=== PATIENT | male | born 1995 | race Caucasian/White ===

== ENCOUNTER 2021-08-21 11:12 | Emergency (ER) | payer SELFPAY ==
--- NOTE | 2021-08-21 12:47 | RAD REPORT ---
EXAM DESCRIPTION: RAD - Foot Right 2 View - 08/21/2021 12:00 pm CLINICAL HISTORY: PAINfollowing jumping COMPARISON: No comparisons FINDINGS: No fracture, dislocation or periosteal reaction. No acute bone or joint finding identifiab le. No air or foreign body in the soft tissues. IMPRESSION: Negative right foot examination.
--- NOTE | 2021-08-21 12:47 | RAD REPORT ---
EXAM DESCRIPTION: RAD - Foot Left 2 View - 08/21/2021 12:00 pm CLINICAL HISTORY: PAINfollowing jumping. COMPARISON: None. FINDINGS: Two view left foot examination shows no fracture. No dislocation or periosteal reaction. N o acute bone or joint finding identifiable. No air or foreign body in the soft tissues. IMPRESSION: No fracture or acute finding identifiable.
--- NOTE | 2021-08-21 13:19 | EDPHYS ---
Physician Documentation [facility] Name: Marcelo Garcia Age: 26 yrs Sex: Male : 1995 Arrival Date: 08/21/2021 Time: 11:15 Bed 10 Private MD: ED Physician Jimbo Lilly HPI: 08/21 13:15 This 26 yrs old Male presents to ER via Wheelchair with complaints of Foot Injury - jr8 Both feet after fall. 13:15 Onset: The symptoms/episode began/occurred acutely, yesterday. Modifying factors: The jr8 symptoms are alleviated by nothing. the symptoms are aggravated by weight bearing. Associated signs and symptoms: The patient has no apparent associated signs or symptoms. Severity of symptoms: At their worst the symptoms were mild, in the emergency department the symptoms are unchanged. The patient has not experienced similar symptoms in the past. This is a 26-year-old male patient that presented to the emergency room with complaints of bilateral calcaneal pain after jumping over object and landing on his feet. Patient stated that since then he has had difficulty walking and pain to both of his lower extremities.. Historical: - Allergies: 11:21 No Known Allergies; ll1 - PMHx: 11:21 None; ll1 - PSHx: 11:21 L arm SX; ll1 - Immunization history:: Client reports having NOT received the Covid vaccine. - Social history:: Smoking status: Patient reports the use of cigarette tobacco products, smokes one-half pack cigarettes per day. ROS: 13:15 Constitutional: Negative for fever, chills, and weight loss, Cardiovascular: Negative jr8 for chest pain, palpitations, and edema, Respiratory: Negative for shortness of breath, cough, wheezing, and pleuritic chest pain, Abdomen/GI: Negative for abdominal pain, nausea, vomiting, diarrhea, and constipation, Back: Negative for injury and pain, Skin: Negative for injury, rash, and discoloration, Neuro: Negative for headache, weakness, numbness, tingling, and seizure. 13:15 MS/extremity: Positive for pain, tenderness, of the right foot and left foot. Exam: 13:15 Constitutional: This is a well developed, well nourished patient who is awake, alert, jr8 and in no acute distress. Cardiovascular: Regular rate and rhythm with a normal S1 and S2. No gallops, murmurs, or rubs. Normal PMI, no JVD. No pulse deficits. Respiratory: Lungs have equal breath sounds bilaterally, clear to auscultation and percussion. No rales, rhonchi or wheezes noted. No increased work of breathing, no retractions or nasal flaring. Skin: Warm, dry with normal turgor. Normal color with no rashes, no lesions, and no evidence of cellulitis. Neuro: Awake and alert, GCS 15, oriented to person, place, time, and situation. Motor strength 5/5 in all extremities. Sensory grossly intact. 13:15 Musculoskeletal/extremity: Extremities: grossly normal except: noted in the left foot: pain, tenderness, To the calcaneus and midfoot, noted in the right foot: pain, tenderness, The calcaneus and midfoot, ROM: intact in all extremities, Circulation is intact in all extremities. Sensation intact. Vital Signs: 11:20 BP 108 / 82; Pulse 86; Resp 17; Temp 99.0; Pulse Ox 100% ; Weight 68.04 kg; Height 5 ll1 ft. 11 in. (180.34 cm); Pain 10/10; 11:20 Body Mass Index 20.92 (68.04 kg, 180.34 cm) ll1 MDM: 12:49 Patient medically screened. jr8 13:15 Data reviewed: vital signs, nurses notes, radiologic studies, plain films. Data jr8 interpreted: Pulse oximetry: on room air is 100 %. Interpretation: normal. Counseling: I had a detailed discussion with the patient and/or guardian regarding: the historical points, exam findings, and any diagnostic results supporting the discharge/admit diagnosis, radiology results, the need for outpatient follow up, a family practitioner, to return to the emergency department if symptoms worsen or persist or if there are any questions or concerns that arise at home. ED course: Discussed with patient that there is no acute fracture of either foot. Most likely bruised his feet when jumping over his object and landing directly on his feet. Recommended [id number] NSAIDs and rest for the next few days. If worse come back otherwise to follow-up with primary care.. 08/21 11:29 Order name: XRAY Foot LEFT 2 View; Complete Time: 12:49 jr8 08/21 11:29 Order name: XRAY Foot RIGHT 2 View; Complete Time: 12:56 jr8 Administered Medications: No medications were administered Disposition Summary: 08/21/21 13:19 Discharge Ordered Location: Home jr8 Problem: new jr8 Symptoms: have improved jr8 Condition: Stable jr8 Diagnosis - Pain in left foot jr8 - Pain in right foot jr8 Followup: jr8 - With: Private Physician - When: 5 - 6 days - Reason: Recheck today's complaints, Continuance of care, Re-evaluation by your physician Discharge Instructions: - Discharge Summary Sheet jr8 - Foot Contusion jr8 - Foot Pain jr8 Forms: - Medication Reconciliation Form jr8 - Thank You Letter jr8 - Antibiotic Education jr8 - Prescription Opioid Use jr8 Signatures: Dispatcher [employer] Mathieu Bacon PA PA jr8 Jose D Sheehan, RN RN ll1
--- NOTE | 2021-08-21 13:19 | ER ---
Nurse's Notes [facility] Name: Marcelo Garcia Age: 26 yrs Sex: Male : 1995 Arrival Date: 08/21/2021 Time: 11:15 Bed 10 Private MD: Diagnosis: Pain in left foot;Pain in right foot Presentation: 08/21 11:20 Chief complaint: Patient states: Jumped off railing playing with his kids yesterday. ll1 Bilateral foot pains since (worse on L). Unable to tolerate bearing weight. Coronavirus screen: Vaccine status: Patient reports being unvaccinated. Client denies travel out of the [place] in the last 14 days. At this time, the client does not indicate any symptoms associated with coronavirus-19. Ebola Screen: Patient denies travel to an Ebola-affected area in the 21 days before illness onset. Initial Sepsis Screen: Does the patient meet any 2 criteria? No. Patient's initial sepsis screen is negative. Does the patient have a suspected source of infection? Yes: Bone or joint infection. Risk Assessment: Do you want to hurt yourself or someone else? Patient reports no desire to harm self or others. Onset of symptoms was August 20, 2021. 11:20 Method Of Arrival: Wheelchair ll1 11:20 Acuity: DA 4 ll1 Triage Assessment: 11:22 General: Appears uncomfortable, Behavior is cooperative, appropriate for age. Pain: ll1 Complains of pain in B feet. Musculoskeletal: Reports pain in right foot and left foot. Injury Description: Bruise. Historical: - Allergies: 11:21 No Known Allergies; ll1 - PMHx: 11:21 None; ll1 - PSHx: 11:21 L arm SX; ll1 - Immunization history:: Client reports having NOT received the Covid vaccine. - Social history:: Smoking status: Patient reports the use of cigarette tobacco products, smokes one-half pack cigarettes per day. Assessment: 13:54 Reassessment: Patient is alert, oriented x 3, equal unlabored respirations, skin aa5 warm/dry/pink. Vital Signs: 11:20 BP 108 / 82; Pulse 86; Resp 17; Temp 99.0; Pulse Ox 100% ; Weight 68.04 kg; Height 5 ll1 ft. 11 in. (180.34 cm); Pain 10/10; 11:20 Body Mass Index 20.92 (68.04 kg, 180.34 cm) ll1 ED Course: 11:15 Patient arrived in ED. kz 11:21 Triage completed. ll1 11:22 Arm band placed on. ll1 11:29 Mathieu Sotelo PA is PHCP. jr8 11:29 Jimbo Lilly MD is Attending Physician. jr8 12:00 XRAY Foot LEFT 2 View In Process Unspecified. EDMS 12:00 XRAY Foot RIGHT 2 View In Process Unspecified. EDMS 13:54 No provider procedures requiring assistance completed. Patient did not have IV access aa5 during this emergency room visit. Administered Medications: No medications were administered Outcome: 13:19 Discharge ordered by . jr8 13:54 Discharged to home ambulatory, with crutches. aa5 13:54 Condition: stable 13:54 Discharge instructions given to patient, Instructed on discharge instructions, follow up and referral plans. crutch walking, Demonstrated understanding of instructions, follow-up care, crutch walking. 13:56 Patient left the ED. aa5 Signatures: Dispatcher [employer] EDMS Cassie Campos RN RN aa5 Mathieu Sotelo PA PA jr8 Jose D Sheehan RN RN ll1 Martha Agustin
[2021-08-21 14:26] VITALS: BP 108/82; TEMP 99; O2SAT 100
== END 2021-08-21 13:56 | disposition home or self-care (01) ==
LOC: ER 11:12
DX: M79.672 Pain in left foot (principal); M79.671 Pain in right foot; F17.210 Nicotine dependence, cigarettes, uncomplicated
CPT/HCPCS: 99283

== ENCOUNTER → 2023-06-22 | Emergency (ER) | payer SELFPAY ==
[~2023-06-22] MED LIST: NA CHLORIDE 0.9% 1,000 ML ONE
--- NOTE | 2023-06-22 23:34 | ER ---
Nurse's Notes [facility] Name: Marcelo Garcia Age: 28 yrs Sex: Male : 1995 Arrival Date: 06/22/2023 Time: 21:54 Bed 5 Private MD: Diagnosis: Contusion of nose;Unspecified injury of head, initial encounter;Cervicalgia Presentation: 06/22 22:09 Chief complaint: Patient states: face and genital pain; pt noted to have a laceration km8 to the bridge of his nose with dried blood on face; pt in police custody. Coronavirus screen: Client denies travel out of the [place] in the last 14 days. Ebola Screen: No symptoms or risks identified at this time. Initial Sepsis Screen: Does the patient meet any 2 criteria? HR > 90 bpm. No. Patient's initial sepsis screen is negative. Does the patient have a suspected source of infection? No. Patient's initial sepsis screen is negative. Risk Assessment: Do you want to hurt yourself or someone else? Patient reports no desire to harm self or others. Onset of symptoms was June 22, 2023. 22:09 Method Of Arrival: Law Enforcement: [place] [employer] km8 22:09 Acuity: DA 3 km8 Triage Assessment: 22:10 General: Appears in no apparent distress. Behavior is agitated, anxious. Pain: km8 Complains of pain in face and groin Pain currently is 10 out of 10 on a pain scale. EENT: No signs and/or symptoms were reported regarding the EENT system. Neuro: Level of Consciousness is awake, alert, obeys commands. Cardiovascular: Patient's skin is warm and dry. Respiratory: Airway is patent Respiratory effort is even, unlabored, Respiratory pattern is regular, symmetrical. GI: No signs and/or symptoms were reported involving the gastrointestinal system. : Reports penile pain. Derm: Skin is healthy with good turgor, Skin is dry, Skin is pink, warm \\T\\ dry. normal, Skin temperature is warm Wound noted bridge of nose Wound is laceration. Musculoskeletal: Circulation, motion, and sensation intact. Range of motion: intact in all extremities. Historical: - Allergies: 22:10 "pain pills"; km8 - Home Meds: 22:10 None [Active]; km8 - PMHx: 22:10 None; km8 - PSHx: 22:10 L arm SX; km8 - Immunization history:: Client reports having NOT received the Covid vaccine. Last tetanus immunization: unknown, Flu vaccine is not up to date. - Social history:: Smoking status: Patient/guardian denies using tobacco, the patient reports quitting approximately 1 years ago, Patient uses alcohol, only on a social basis. Patient/guardian denies using street drugs. Screenin:30 [facility] ED Fall Risk Assessment (Adult) History of falling in the last 3 months, jb4 including since admission No falls in past 3 months (0 pts) Confusion or Disorientation No (0 pts). Abuse screen: Denies threats or abuse. Nutritional screening: No deficits noted. Tuberculosis screening: No symptoms or risk factors identified. Assessment: 22:10 Reassessment: see triage note, bruises noted to upper back, hematoma to back of head. jb4 laceration to bridge of the nose. 22:49 Reassessment: Patient appears in no apparent distress at this time. Patient and/or jb4 family updated on plan of care and expected duration. Pain level reassessed. Patient is alert, oriented x 3, equal unlabored respirations, skin warm/dry/pink. Pt back from CT. 23:53 Reassessment: Patient appears in no apparent distress at this time. Patient and/or jb4 family updated on plan of care and expected duration. Pain level reassessed. Patient is alert, oriented x 3, equal unlabored respirations, skin warm/dry/pink. Cleaned pt's face and cut on the nose. Applied 2 steri strips to laceration. Vital Signs: 22:09 BP 137 / 92; Pulse 138; Resp 16; Temp 98.4(IR); Pulse Ox 96% on R/A; Weight 86.18 kg km8 (R); Height 6 ft. 0 in. (R); Pain 10/10; 23:09 BP 105 / 67; Pulse 94; Resp 16; Pulse Ox 100% ; jb4 23:30 BP 104 / 72; Pulse 99; Resp 16; Pulse Ox 97% ; jb4 22:09 Body Mass Index 25.77 (86.18 kg, 182.88 cm) [facility] 22:09 Pain Scale: Adult [facility] ED Course: 22:00 Patient arrived in ED. jj6 22:01 Freya Ordonez FNP-C is [facility]. kb 22:01 Anant Mckinney MD is Attending Physician. kb 22:10 Triage completed. km8 22:10 Arm band placed on right wrist. km8 22:15 Patient has correct armband on for positive identification. Bed in low position. Call jb4 light in reach. Side rails up X 1. 22:24 Inserted saline lock: 20 gauge in right antecubital area, using aseptic technique. jb4 22:45 CT Head C Spine In Process Unspecified. EDMS 22:45 CT Facial Bones W/O Con In Process Unspecified. EDMS 23:57 No provider procedures requiring assistance completed. IV discontinued, intact, jb4 bleeding controlled, No redness/swelling at site. Pressure dressing applied. Administered Medications: 22:23 Drug: NS 0.9% IV 1000 ml IV at 1000 ml once Route: IV; Rate: 1000 ml; Site: right jb4 antecubital; Outcome: 23:34 Discharge ordered by MD. kb 23:57 Discharged to Law Enforcement jb4 23:57 Condition: stable 23:57 Discharge instructions given to patient, Instructed on discharge instructions, follow up and referral plans. Demonstrated understanding of instructions, follow-up care, 06/23 00:01 Patient left the ED. jb4 Signatures: Dispatcher [employer] EDMA Freya Ordonez FNP-C FNP-David Pereira, RN RN jb4 Katarina Leach jj6 Armida Lentz, RN RN km8 Corrections: (The following items were deleted from the chart) 00:01 06/22 22:10 Reassessment: see triage note, bruises noted to upper back jb4 jb4
--- NOTE | 2023-06-22 23:34 | EDPHYS ---
Physician Documentation [facility] Name: Marcelo Garcia Age: 28 yrs Sex: Male : 1995 Arrival Date: 06/22/2023 Time: 21:54 Bed 5 Private MD: ED Physician Anant Mckinney Historical: - Allergies: 06/22 22:10 "pain pills"; km8 - Home Meds: 22:10 None [Active]; km8 - PMHx: 22:10 None; km8 - PSHx: 22:10 L arm SX; km8 - Immunization history:: Client reports having NOT received the Covid vaccine. Last tetanus immunization: unknown, Flu vaccine is not up to date. - Social history:: Smoking status: Patient/guardian denies using tobacco, the patient reports quitting approximately 1 years ago, Patient uses alcohol, only on a social basis. Patient/guardian denies using street drugs. Vital Signs: 22:09 BP 137 / 92; Pulse 138; Resp 16; Temp 98.4(IR); Pulse Ox 96% on R/A; Weight 86.18 kg km8 (R); Height 6 ft. 0 in. (R); Pain 10/10; 23:09 BP 105 / 67; Pulse 94; Resp 16; Pulse Ox 100% ; jb4 23:30 BP 104 / 72; Pulse 99; Resp 16; Pulse Ox 97% ; jb4 22:09 Body Mass Index 25.77 (86.18 kg, 182.88 cm) km8 22:09 Pain Scale: Adult km8 MDM: 22:01 Patient medically screened. kb 06/22 22:11 Order name: CT Head C Spine kb 06/22 22:11 Order name: CT Facial Bones W/O Con kb 06/22 22:11 Order name: IV Start; Complete Time: 22:24 kb Administered Medications: 22:23 Drug: NS 0.9% IV 1000 ml IV at 1000 ml once Route: IV; Rate: 1000 ml; Site: right jb4 antecubital; Disposition Summary: 06/22/23 23:34 Discharge Ordered Notes: Location: [employer] Enforcement kb Condition: Stable kb Diagnosis - Contusion of nose kb - Unspecified injury of head, initial encounter kb - Cervicalgia kb Followup: kb - With: Emergency Department - When: As needed - Reason: Worsening of condition Followup: kb - With: Private Physician - When: 2 - 3 days - Reason: Recheck today's complaints, Continuance of care, Re-evaluation by your physician Discharge Instructions: - Discharge Summary Sheet kb - Musculoskeletal Pain kb - Head Injury, Adult, [id number] kb - Facial or Scalp Contusion, Khoh-wx-Fons kb Forms: - Medication Reconciliation Form kb - Thank You Letter kb - Antibiotic Education kb - Prescription Opioid Use kb - Patient Portal Instructions kb - Leadership Thank You Letter kb Signatures: Dispatcher [employer] EDFreya Lui, DIVISION HEAD-C DIVISION HEAD-David Pereira, RN RN jb4 Armida Lentz, RN RN km8
[2023-06-23 05:59] VITALS: BP 104/72; TEMP 98.4; O2SAT 97
--- NOTE | 2023-06-23 14:41 | RAD REPORT ---
EXAM DESCRIPTION: CT - Facial Bones W/ Mpr - 06/23/2023 6:31 am CLINICAL HISTORY: FACIAL PAIN COMPARISON: None. TECHNIQUE: CT MAXILLOFACIAL WITHOUT IV CONTRAST on 06/22/2023 10:11 PM [employer] This exam was performed according to our departmental dose-optimization program, which includes autom ated exposure control, adjustment of the mA and/or kV according to patient size and/or use of iterati ve reconstruction technique. FINDINGS: There is no acute fracture. The paranasal sinuses are clear. Orbits and globes are unremar kable. Mastoid air cells are clear. Temporomandibular joints are intact. There is a small left fronta l scalp contusion. IMPRESSION: No post-traumatic findings. Electronically signed by: Dimitrios Mathis MD 06/22/2023 11:20 PM [employer] Due to temporary technical issues with the PACS/Fluency reporting system, reports are being signed by the in house radiologist without review as a courtesy to ensure prompt reporting. The interpreting r adiologist is fully responsible for the content of the report.
--- NOTE | 2023-06-23 14:42 | RAD REPORT ---
EXAM DESCRIPTION: CT - Head C Spine Mpr Wo Con - 06/23/2023 6:32 am CLINICAL HISTORY: PAIN COMPARISON: None. TECHNIQUE: CT HEAD AND CERVICAL SPINE WITHOUT CONTRAST on 06/22/2023 10:11 PM DOUGH RAISER This exam was performed according to our departmental dose-optimization program, which includes autom ated exposure control, adjustment of the mA and/or kV according to patient size and/or use of iterati ve reconstruction technique. FINDINGS: Brain: There is no acute hemorrhage, mass effect or midline shift. Mays-white differentiat ion is preserved. There is no hydrocephalus. There is no significant volume loss for age. There is a small left frontal scalp contusion. The calvarium is intact. Orbits and globes are unremarkable. The paranasal sinuses are clear. Mastoid air cells are clear. Cervical Spine: There is no acute fracture. Alignment is anatomic. Disc spaces are maintained. Vertebral body heights are preserved. Soft tissues are unremarkable. IMPRESSION: No acute postraumatic findings. Electronically signed by: Dimitrios Mathis MD 06/22/2023 11:19 PM DOUGH RAISER Due to temporary technical issues with the PACS/Fluency reporting system, reports are being signed by the in house radiologist without review as a courtesy to ensure prompt reporting. The interpreting r adiologist is fully responsible for the content of the report.
== END ==
LOC: ER 21:54
DX: S01.21XA Laceration without foreign body of nose, initial encounter (principal); M54.2 Cervicalgia
CPT/HCPCS: 70450; 70486; 72125; 76377; J7030

== ENCOUNTER 2023-09-05 15:18 | Emergency (ER) | payer SELFPAY ==
--- OUTSIDE RECORDS SUMMARY | 2023-09-05 15:20 | XMS REPORT | Continuity of Care Document ---
Author Name Unknown Address [address] [place] [address] [employer] Address [address] [place] [address] [address] [place] [address] Care Team Providers Care Physician Underwriter Name Role Phone Unavailable Unavailable Unavailable
--- NOTE | 2023-09-05 16:42 | RAD REPORT ---
EXAM DESCRIPTION: RAD - Knee Left 3 View - 09/05/2023 4:20 pm CLINICAL HISTORY: Left knee pain FINDINGS: No fracture or dislocation is seen. Small joint effusion. Otherwise, no significant bone or joint abnormality noted
--- NOTE | 2023-09-05 17:45 | ER ---
Nurse's Notes [facility] Name: Marcelo Garcia Age: 28 yrs Sex: Male : 1995 Arrival Date: 09/05/2023 Time: 15:18 Bed 12 Private MD: Diagnosis: Pain in left knee Presentation: 09/04 15:23 Chief complaint: Patient states: L knee pain and swelling after twisting it yesterday, ph pt ambulatory w/ slight limp noted. Coronavirus screen: Vaccine status: Patient reports receiving the 2nd dose of the covid vaccine. Ebola Screen: No symptoms or risks identified at this time. Initial Sepsis Screen: Does the patient meet any 2 criteria? No. Patient's initial sepsis screen is negative. Does the patient have a suspected source of infection? No. Patient's initial sepsis screen is negative. Risk Assessment: Do you want to hurt yourself or someone else? Patient reports no desire to harm self or others. Onset of symptoms was September 05, 2023. 15:23 Method Of Arrival: Ambulatory ph 15:23 Acuity: DA 4 ph Historical: - Allergies: 15:25 No Known Allergies; ph - PSHx: 15:25 L arm SX; ph - Immunization history:: Adult Immunizations up to date. - Infectious Disease History:: Denies. - Social history:: Smoking status: Patient denies any tobacco usage or history of. Screenin:39 [facility] ED Fall Risk Assessment (Adult) History of falling in the last 3 months, ph including since admission No falls in past 3 months (0 pts) Confusion or Disorientation No (0 pts) Intoxicated or Sedated No (0 pts) Impaired Gait No (0 pts) Mobility Assist Device Used No (0 pt) Altered Elimination No (0 pt) Score/Fall Risk Level 0 - 2 = Low Risk Oriented to surroundings, Maintained a safe environment, Provided non-skid footwear, Hourly rounding (assess needs \T\ fall precautionary measures) done. Abuse screen: Denies threats or abuse. Denies injuries from another. Nutritional screening: No deficits noted. Tuberculosis screening: No symptoms or risk factors identified. Assessment: 15:38 General: Appears in no apparent distress. comfortable, Behavior is calm, cooperative, ph appropriate for age. Pain: Complains of pain in left knee. Neuro: Level of Consciousness is awake, alert, obeys commands, Oriented to person, place, time, situation. Derm: Skin is pink, warm \T\ dry. 17:55 Musculoskeletal: Circulation, motion, and sensation intact. Capillary refill < 3 ll1 seconds, Reports pain in left knee. 18:08 Reassessment:. ll1 Vital Signs: 15:23 BP 131 / 90; Pulse 83; Resp 18; Temp 97.9; Pulse Ox 99% on R/A; Weight 90.72 kg; Height ph 6 ft. 0 in. ; 17:57 BP 131 / 81; Pulse 81; Resp 17; Temp 98.1; Pulse Ox 99% ; ll1 15:23 Body Mass Index 27.12 (90.72 kg, 182.88 cm) ph ED Course: 15:20 Patient arrived in ED. rg4 15:23 Adriel Collado DO is Attending Physician. ms3 15:25 Triage completed. ph 15:26 Arm band placed on Patient placed in an exam room. ph 15:38 Lissette Virgen RN is Primary Nurse. ph 15:39 Patient has correct armband on for positive identification. Bed in low position. Call ph light in reach. Side rails up X 1. Pulse ox on. NIBP on. 16:22 Knee Left 3 View XRAY In Process Unspecified. EDMS 17:45 Tony Calle MD is Referral Physician. ms3 17:50 Patient did not have IV access during this emergency room visit. Crutch training done. ll1 Knee immobilizer applied on left knee. 17:57 Provided Education on: follow-up with orthopedic doctor of choice or PCP. ll1 17:57 No provider procedures requiring assistance completed. ll1 Administered Medications: No medications were administered Medication: 15:39 VIS not applicable for this client. ph Outcome: 17:45 Discharge ordered by . ms3 17:57 Patient left the ED. ll1 17:57 Discharged to home ambulatory, ll1 17:57 Condition: stable 17:57 Discharge instructions given to patient, family, Instructed on discharge instructions, follow up and referral plans. Demonstrated understanding of instructions, follow-up care, Signatures: Dispatcher [employer] EDVT Lissette Virgen RN RN Joan Matute rg4 Jose D Sheehan RN RN ll1 Collado, Adriel, DO DO ms3
--- NOTE | 2023-09-05 17:45 | EDPHYS ---
Physician Documentation [facility] Name: Marcelo Garcia Age: 28 yrs Sex: Male : 1995 Arrival Date: 09/05/2023 Time: 15:18 Bed 12 Private MD: ED Physician Adriel Collado HPI: 09/04 17:45 This 28 yrs old Male presents to ER via Ambulatory with complaints of Knee Pain. ms3 17:45 28-year-old male with no past medical history presents to the emergency department for ms3 left knee pain. Patient states his foot was stuck in the mud and he twisted his knee. Patient states the knee is currently swollen and in 5/10 pain. Patient states pain is worse with walking. Patient denies any alleviating factors.. Historical: - Allergies: 15:25 No Known Allergies; ph - PSHx: 15:25 L arm SX; ph - Immunization history:: Adult Immunizations up to date. - Infectious Disease History:: Denies. - Social history:: Smoking status: Patient denies any tobacco usage or history of. ROS: 17:45 Constitutional: Negative for fever, and chills. Cardiovascular: Negative for chest ms3 pain, and palpitations. Respiratory: Negative for shortness of breath, cough, wheezing, and pleuritic chest pain, Abdomen/GI: Negative for abdominal pain, nausea, vomiting, diarrhea, and constipation, 17:45 MS/extremity: Positive for Left knee pain, Exam: 17:45 Constitutional: This is a well developed, well nourished patient who is awake, alert, ms3 and in no acute distress. Head/Face: Normocephalic, atraumatic. Chest/axilla: Normal chest wall appearance and motion. Nontender with no deformity. Cardiovascular: Regular rate and rhythm with a normal S1 and S2. No gallops, murmurs, or rubs. Normal PMI, no JVD. No pulse deficits. Respiratory: Lungs have equal breath sounds bilaterally, clear to auscultation and percussion. No rales, rhonchi or wheezes noted. No increased work of breathing, no retractions or nasal flaring. Abdomen/GI: Soft, non-tender, with normal bowel sounds. No distension or tympany. No guarding or rebound. No evidence of tenderness throughout. Skin: Warm, dry with normal turgor. Normal color with no rashes, no lesions, and no evidence of cellulitis. 17:45 Musculoskeletal/extremity: Extremities: noted in the left knee: pain, swelling, tenderness, Negative anterior posterior drawer, Vital Signs: 15:23 BP 131 / 90; Pulse 83; Resp 18; Temp 97.9; Pulse Ox 99% on R/A; Weight 90.72 kg; Height ph 6 ft. 0 in. ; 17:57 BP 131 / 81; Pulse 81; Resp 17; Temp 98.1; Pulse Ox 99% ; ll1 15:23 Body Mass Index 27.12 (90.72 kg, 182.88 cm) ph MDM: 15:31 Patient medically screened. ms3 17:45 Differential diagnosis: closed fracture, Sprain strain versus ligament injury. Data ms3 reviewed: vital signs, nurses notes, radiologic studies, and as a result, I will discharge patient. Counseling: I had a detailed discussion with the patient and/or guardian regarding the historical points, exam findings, and any diagnostic results supporting the discharge/admit diagnosis, radiology results, the need for outpatient follow up, to return to the emergency department if symptoms worsen or persist or if there are any questions or concerns that arise at home. Special discussion: I discussed with the patient/guardian in detail that at this point there is no indication for admission to the hospital. It is understood, however, that if the symptoms persist or worsen the patient needs to return immediately for re-evaluation. ED course: Discussed x-ray results with patient. Patient to follow-up with orthopedics in 2 to 3 days. Patient understands and agrees with plan. All questions were answered. Return precautions discussed include worsening symptoms, or any other concerns. On reevaluation patient with 2+/4 DP and PT pulses in the left foot. Patient given crutches and placed in knee immobilizer. 09/04 15:30 Order name: Knee Left 3 View XRAY; Complete Time: 17:45 ms3 09/04 17:46 Order name: Knee Immobilizer; Complete Time: 18:11 ms3 09/04 17:46 Order name: Crutches; Complete Time: 18:11 ms3 Administered Medications: No medications were administered Disposition Summary: 09/05/23 17:45 Discharge Ordered Notes: Location: Home ms3 Condition: Stable ms3 Diagnosis - Pain in left knee ms3 Followup: ms3 - With: Tony Calle MD - When: 2 - 3 days - Reason: Recheck today's complaints Discharge Instructions: - Discharge Summary Sheet ms3 - Acute Knee Pain, Adult ms3 Forms: - Medication Reconciliation Form ms3 - Thank You Letter ms3 - Antibiotic Education ms3 - Prescription Opioid Use ms3 - Patient Portal Instructions ms3 - Leadership Thank You Letter ms3 Signatures: Dispatcher [employer] Lissette Perdomo, YAN RN ph Adriel Collado, DO ms3
[2023-09-06 00:25] VITALS: BP 131/90; TEMP 97.9; O2SAT 99
== END 2023-09-05 17:57 | disposition home or self-care (01) ==
LOC: ER 15:18
DX: M25.562 Pain in left knee (principal)
CPT/HCPCS: 99283